=== PATIENT | female | born 1985 | race Caucasian/White ===

== ENCOUNTER 2017-01-09 17:50 | Emergency (ER) | payer MEDICAID ==
[~2017-01-09] VITALS: Ht 165.1 cm; Wt 50.0 kg
[2017-01-09 19:11] VITALS: BP 115/79
== END 2017-01-09 19:16 | disposition home or self-care (01) ==
LOC: ED 19:10
DX: Z76.0 Encounter for issue of repeat prescription (principal); F41.1 Generalized anxiety disorder; F17.210 Nicotine dependence, cigarettes, uncomplicated
CPT/HCPCS: 99283

== ENCOUNTER 2017-01-29 16:02 | Emergency (ER) | payer MEDICAID ==
[~2017-01-29] VITALS: Ht 165.1 cm; Wt 54.5 kg
[~2017-01-29 16:02] MED LIST: AZIT500T4 PO; CEFD300C2 PO; FLUO20CA19 PO; GABA800T2 PO; PRAZ2CAP2 PO
[2017-01-29] MEDS ORDERED: ONDANSETRON 2MG/ML, 2ML IVP ONE (16:30)
[2017-01-29] MEDS ORDERED: SODIUM CHLORIDE FLUSH 10ML SYR IVF ONE (16:30)
[2017-01-29] MEDS ORDERED: ONDANSETRON 2MG/ML, 2ML ONE (16:37)
[2017-01-29] MEDS ORDERED: HYDROmorphone 1 MG/ML, 1ML ONE ×2 (16:37→19:14)
[2017-01-29] MEDS ORDERED: CEFTRIAXONE PMX 1GM/50ML 50 ML ONE (17:21)
[2017-01-29] MEDS ORDERED: LORazepam 2 MG/ML, 1ML ONE (17:21)
[2017-01-29 17:22] LABS: ASPARTATE AMINO TRANSFERASE 29 U/L (15-37); BLOOD UREA NITROGEN 4 mg/dL (7-18)
[2017-01-29] MEDS: HYDROmorphone 1 MG/ML, 1ML IV PRN ×2 (17:25→19:21)
[2017-01-29] MEDS ORDERED: LORazepam 2 MG/ML, 1ML IVPush ONE (17:30)
[2017-01-29] MEDS ORDERED: AZITHROMYCIN 500 MG in SODIUM CHLORIDE 0.9% 250 ML IV ONE (17:30)
[2017-01-29] MEDS ORDERED: CEFTRIAXONE PMX 1GM/50ML 50 ML IV ONE (17:30)
[2017-01-29 17:42] LABS: DIFF TOTAL CELLS COUNTED 100 CELL DIFF
[2017-01-29 17:46] LABS: VERIFY COUNTS? YES
[2017-01-29 20:21] VITALS: BP 106/56
== END 2017-01-29 20:26 | disposition home or self-care (01) ==
LOC: ED 20:20
DX: J18.1 Lobar pneumonia, unspecified organism (principal); F12.10 Cannabis abuse, uncomplicated
CPT/HCPCS: 36415; 71020; 80053; 85025; 93005; 96365; 96367; 96375; 96376; 99285; J0456; J0696; J1170; J2060; J2405; J7050

== ENCOUNTER 2017-02-06 15:04 | Inpatient (IN) | payer MEDICAID ==
[~2017-02-06] VITALS: Ht 165.1 cm; Wt 55.1 kg
[~2017-02-06 15:04] MED LIST changes: -AZIT500T4 PO; +AZIT500T77 PO; -CEFD300C2 PO; +CEFD300C37 PO
[2017-02-06] MEDS ORDERED: SODIUM CHLORIDE FLUSH 10ML SYR IVF ONE (15:30)
[2017-02-06] MEDS ORDERED: ONDANSETRON 2MG/ML, 2ML IVP ONE (15:30)
[2017-02-06] MEDS ORDERED: SODIUM CHLORIDE 0.9% 1,000ML IVBOLUS ONE ×2 (15:30→18:30)
[2017-02-06 16:06] LABS: ASPARTATE AMINO TRANSFERASE 12 U/L (15-37); BLOOD UREA NITROGEN 21 mg/dL (7-18)
[2017-02-06 16:11] LABS: IS PT STATUS REG ER OR PRE ER? YES
[2017-02-06] MEDS ORDERED: LORazepam 2 MG/ML, 1ML ONE (18:15)
[2017-02-06] MEDS ORDERED: ONDANSETRON 2MG/ML, 2ML ONE (18:15)
[2017-02-06] MEDS ORDERED: LORazepam 2 MG/ML, 1ML IVPush ONE (18:30)
[2017-02-06] MEDS ORDERED: MORPHINE SULFATE 4 MG/ML, 1ML ONE (19:21)
[2017-02-06] MEDS ORDERED: METOCLOPRAMIDE 5 MG/ML, 2ML ONE (19:22)
[2017-02-06] MEDS ORDERED: METOCLOPRAMIDE 5 MG/ML, 2ML IVPush ONE (19:30)
[2017-02-06] MEDS ORDERED: MORPHINE SULFATE 4 MG/ML, 1ML IVPush PRN (19:30)
[2017-02-06] MEDS ORDERED: BISACODYL 10 MG SUPP PR PRN (22:00)
[2017-02-06] MEDS ORDERED: DOCUSATE 100 MG CAPSULE PO PRN (22:00)
[2017-02-06] MEDS ORDERED: ACETAMINOPHEN 325 MG TABLET PO PRN (22:00)
[2017-02-06] MEDS ORDERED: LABETALOL 5MG/ML, 20ML IV PRN (22:00)
[2017-02-06] MEDS ORDERED: POLYETHYLENE GLYCOL 17 GM PACKET PO PRN (22:00)
[2017-02-06] MEDS: SODIUM CHLORIDE 0.9% 1,000 ML IV SCH (22:55)
[2017-02-06] MEDS ORDERED: LORazepam 1MG TABLET PO ONE (23:30)
[2017-02-06] MEDS: ENOXAPARIN 40 MG/0.4 ML SQ SCH (23:45)
[2017-02-07 00:17] VITALS: BP 101/66
[2017-02-07] MEDS: TRAZODONE 50MG TABLET PO PRN (01:19)
[2017-02-07] MEDS ORDERED: PROCHLORPERAZINE 10MG TABLET PO PRN (01:30)
[2017-02-07 06:35] LABS: ASPARTATE AMINO TRANSFERASE 5 U/L (15-37); BLOOD UREA NITROGEN 18 mg/dL (7-18)
[2017-02-07 07:03] VITALS: BP 107/70
[2017-02-07] MEDS ORDERED: POTASSIUM CHLORIDE 20 MEQ TAB.ER.PRT PO ONE (08:30)
[2017-02-07] MEDS ORDERED: POTASSIUM CHLORIDE 10 MEQ TABLET.ER ONE (08:30)
[2017-02-07] MEDS: SODIUM CHLORIDE 0.9% 1,000 ML IV SCH ×2 (08:34→19:32)
[2017-02-07] MEDS: FLUOXETINE 20 MG CAPSULE PO SCH (08:36)
[2017-02-07] MEDS: CEFDINIR 300 MG CAPSULE PO SCH ×2 (08:36→21:19)
[2017-02-07] MEDS: PRAZOSIN 2 MG CAPSULE PO SCH ×2 (08:36→21:20)
[2017-02-07] MEDS: GABAPENTIN 400 MG CAPSULE PO SCH ×3 (08:36→21:19)
[2017-02-07] MEDS: ONDANSETRON 2MG/ML, 2ML IVPush PRN ×2 (11:21→19:32)
[2017-02-07 13:39] VITALS: BP_SYST 87; BP_SYST 93; BP_DIAS 51; BP_DIAS 54
[2017-02-07 14:36] VITALS: BP 107/65
[2017-02-07 16:05] LABS: DAU SCREEN DISCLAIMER
[2017-02-07 18:44] VITALS: BP 99/65
[2017-02-07] MEDS: KETOROLAC 30 MG/1 ML IVPush PRN (19:33)
[2017-02-07] MEDS ORDERED: NICOTINE 14MG/24 HR PATCH.TD24 TD SCH (23:30)
[2017-02-08] MEDS: TRAZODONE 50MG TABLET PO PRN (00:46)
[2017-02-08 01:08] VITALS: BP 107/63
[2017-02-08] MEDS: ENOXAPARIN 40 MG/0.4 ML SQ SCH (04:55)
[2017-02-08] MEDS: ONDANSETRON 2MG/ML, 2ML IVPush PRN (05:09)
[2017-02-08] MEDS: KETOROLAC 30 MG/1 ML IVPush PRN (05:09)
[2017-02-08 05:12] LABS: BLOOD UREA NITROGEN 6 mg/dL (7-18)
[2017-02-08 07:15] VITALS: BP 126/80
[2017-02-08] MEDS: GABAPENTIN 400 MG CAPSULE PO SCH (08:29)
[2017-02-08] MEDS: CEFDINIR 300 MG CAPSULE PO SCH (08:29)
[2017-02-08] MEDS: SODIUM CHLORIDE 0.9% 1,000 ML IV SCH (08:29)
[2017-02-08] MEDS: PRAZOSIN 2 MG CAPSULE PO SCH (08:29)
[2017-02-08] MEDS: FLUOXETINE 20 MG CAPSULE PO SCH (08:29)
== END 2017-02-08 10:20 | disposition home or self-care (01) | DRG 391 ==
LOC: ED 20:50 → EDIP 20:53 → 3NE 22:00 → DCLOUNGE 02-08 10:10
PROVIDERS: ADMIT Internal Medicine; ATTEND Internal Medicine
DX: K52.9 Noninfective gastroenteritis and colitis, unspecified (principal); J18.9 Pneumonia, unspecified organism; E87.1 Hypo-osmolality and hyponatremia; E87.2 Acidosis; M79.7 Fibromyalgia; F43.10 Post-traumatic stress disorder, unspecified; F41.9 Anxiety disorder, unspecified; E86.0 Dehydration; F17.210 Nicotine dependence, cigarettes, uncomplicated; E83.52 Hypercalcemia; Z79.899 Other long term (current) drug therapy; Z83.3 Family history of diabetes mellitus
CPT/HCPCS: 36415; 71020; 80048; 80053; 80307; 82306; 83605; 83735; 83970; 84439; 84443; 84484; 85025; 87040; 87324; 93005; 96361; 96374; 96375; J1650; J1885; J2405; J2060; J2765; J7030

== ENCOUNTER 2017-06-06 20:24 | Emergency (ER) | payer MEDICAID ==
[~2017-06-06] VITALS: Ht 160 cm; Wt 48.6 kg
[~2017-06-06 20:24] MED LIST changes: +AZIT500T5 PO; -AZIT500T77 PO
[2017-06-06 21:16] LABS: DAU SCREEN DISCLAIMER
[2017-06-06] MEDS ORDERED: LORazepam 2 MG/ML, 1ML ONE (21:18)
[2017-06-06] MEDS ORDERED: FAMOTIDINE 20 MG/2 ML ONE (21:18)
[2017-06-06] MEDS ORDERED: DIPHENHYDRAMINE 50 MG/ML, 1ML ONE (21:18)
[2017-06-06] MEDS ORDERED: HALOPERIDOL 5 MG/ML ONE (21:18)
[2017-06-06 21:26] LABS: HCG UR OBC PASS
[2017-06-06 21:26] LABS: HEMATOCRIT 53.4 % (34.6-47.8); HEMOGLOBIN 17.8 g/dL (11.7-16.4); WHITE BLOOD COUNT 10.6 x10^3/uL (3.4-10)
[2017-06-06] MEDS ORDERED: LORazepam 2 MG/ML, 1ML IVPush ONE (21:30)
[2017-06-06] MEDS ORDERED: SODIUM CHLORIDE 0.9% 1,000ML IVBOLUS ONE (21:30)
[2017-06-06] MEDS ORDERED: FAMOTIDINE 20 MG/2 ML IVP ONE (21:30)
[2017-06-06] MEDS ORDERED: DIPHENHYDRAMINE 50 MG/ML, 1ML IVPush ONE (21:30)
[2017-06-06] MEDS ORDERED: HALOPERIDOL 5 MG/ML IM ONE (21:30)
[2017-06-06 21:38] LABS: ASPARTATE AMINO TRANSFERASE 18 U/L (15-37); BLOOD UREA NITROGEN 13 mg/dL (7-18)
[2017-06-06 23:59] VITALS: BP 114/68
== END 2017-06-07 00:01 | disposition home or self-care (01) ==
LOC: ED 23:00
DX: E86.0 Dehydration (principal); R11.2 Nausea with vomiting, unspecified; F12.20 Cannabis dependence, uncomplicated; F19.10 Other psychoactive substance abuse, uncomplicated; F41.9 Anxiety disorder, unspecified
CPT/HCPCS: 36415; 80053; 80307; 81001; 81025; 83690; 85025; 87086; 96361; 96372; 96374; 96375; 99285; J1200; J1630; J2060; J7030; S0028